=== PATIENT | female | born 2000 | race Hispanic/Latino ===

== ENCOUNTER 2023-12-20 20:04 | Emergency (ER) | payer OTHER ==
[~2023-12-20] VITALS: Ht 165.1 cm; Wt 113.9 kg
[2023-12-20] MEDS ORDERED: AMOX-426 PO (21:16)
[2023-12-20] MEDS ORDERED: FEXO1TAB5 PO (21:16)
[2023-12-20 21:29] VITALS: BP 134/76; PULSE 72; RESP 16; O2SAT 98
== END 2023-12-20 21:50 | disposition home or self-care (01) ==
LOC: EDH 20:04
DX: H66.93 Otitis media, unspecified, bilateral (principal); E11.9 Type 2 diabetes mellitus without complications; Z98.890 Other specified postprocedural states

== ENCOUNTER 2024-08-30 22:32 | Emergency (ER) | payer SELFPAY ==
[~2024-08-30] VITALS: Ht 165.1 cm; Wt 116.2 kg
[~2024-08-30 22:32] MED LIST: AMOX-426 PO; FEXO1TAB5 PO
--- NOTE | 2024-08-30 22:34 | NUR ---
COVID, FLU AND STREP SWABS COLLECTED AND SENT [facility] PROVIDED
--- NOTE | 2024-08-30 22:58 | ERN ---
ED Note History of Present Illness Stated Complaint: BODYACHES, FEELS WARM Chief Complaint: Multiple Complaints Time Seen by MD: 22:36 Dictation: Patient comes in because she has some epigastric abdominal pain has some body aches and feels warm. It says has some nausea denies any falls trips traumas dysuria hematuria discharge Allergies: Coded Allergies: No Known Drug Allergies (Unverified Allergy, Unknown, 12/20/23) Home Meds Active Scripts Fexofenadine/Pseudoephedrine (Sandra-D 12 Hour Tablet) 60 Mg-120 Mg Tab.er.12h, 1 EACH PO BID for 10 Days, #60 TAB Prov:KARLO SHIN MD 12/20/23 Amoxicillin/Potassium Clav (Augmentin 500-125 Tablet) 500 Mg-125 Mg Tablet, 1 EACH PO BID for 10 Days, #20 TAB Prov:KARLO SHIN MD 12/20/23 Past Medical History Past Medical History: Diabetes-Type II Surgical History: Social History: Negative LMP: Jul 07, 2024 Review of System Dictation Constitutional: Negative for fever,chills, and weight loss Eyes: Negative for injury, pain,redness, and discharge ENT: Negative for injury,pain or swelling Cardiovascular: Negative for chest pain, palpitations, and edema Respiratory: Negative for shortness of breath, cough, and wheezing, Abdomen/GI: Epigastric abdominal pain nausea Back: Negative for injury and pain : Negative for injury, bleeding and discharge MS/Extremity: Negative for injury and deformity Skin: Negative for rash, and discoloration Neuro: Negative for headache, weakness, numbness, tingling, and seizure Psych: Negative for suicide ideation, homicidal ideation, and hallucinations Initial Vital Sign VS Vital Signs Date Time Temp Pulse Resp B/P (MAP) Pulse Ox O2 Delivery O2 Flow Rate FiO2 08/30/24 22:33 97.9 75 14 148/86 98 Room Air Physical Exam Dictation General: awake, alert, NAD Head/Face: Normocephalic, atraumatic Eyes: PERRL, EOMI, vision at baseline ENT: oral cavity clear, TMs clear, no signs of infection Neck: Trachea midline, supple, no nuchal rigidity Cardiovascular: RRR, normal S1/S2, No MRGs, no JVD Respiratory: CTAB, no respiratory distress, No rales or wheezes Abdomen: Have some epigastric abdominal pain Skin: Warm, dry, normal turgor, no rash MS/Extremity: Pulses equal, no cyanosis, neurovascular intact, FROM Neuro: COAx4, GCS 15, strength 5/5, CN 2-12 intact, normal cerebellar exam, normal gait, Psych: Normal behavior, mood, and affect normal Results (Laboratory/Radiology) Laboratory/Radiology Laboratory Tests Test 08/30/24 22:35 08/30/24 23:25 Influenza Type A Antigen Negative For Type A Influenza Type B Antigen Negative For Type B SARS-CoV-2, RNA, NAAT NEGATIVE SARS CoV-2 Group A Streptococcus Rapid negative (NEGATIVE) White Blood Count 7.4 K/uL (4.8-10.8) Red Blood Count 4.61 MIL/uL (4.00-5.50) Hemoglobin 13.2 g/dL (12.0-16.0) Hematocrit 39.1 % (36-48) Mean Corpuscular Volume 84.8 fL (79-99) Mean Corpuscular Hemoglobin 28.6 pg (27.0-33.0) Mean Corpuscular Hemoglobin Concent 33.8 g/dL (32.0-36.0) Red Cell Distribution Width 13.2 % (11.0-15.5) Platelet Count 218 K/uL (130-400) Mean Platelet Volume 10.3 fL (7.5-10.5) Immature Granulocyte % (Auto) 0.3 % (0-1) Neutrophils (%) (Auto) 43.2 % (40.0-77.0) Lymphocytes (%) (Auto) 43.4 % (21.0-51.0) Monocytes (%) (Auto) 11.0 % (3.0-13.0) Eosinophils (%) (Auto) 1.6 % (0.0-8.0) Basophils (%) (Auto) 0.5 % (0.0-5.0) Neutrophils # (Auto) 3.2 K/uL (1.8-7.7) Lymphocytes # (Auto) 3.2 K/uL (1.0-4.8) Monocytes # (Auto) 0.8 K/uL (0.1-1.0) Eosinophils # (Auto) 0.12 K/uL (0.00-0.70) Basophils # (Auto) 0.04 K/uL (0.00-0.20) Absolute Immature Granulocyte (auto 0.02 K/uL (0-1) Nucleated Red Blood Cells 0.0 % (0.0-0.19) Sodium Level 134 mmol/L (136-145) L Potassium Level 3.9 mmol/L (3.5-5.1) Chloride Level 99 mmol/L (101-111) L Carbon Dioxide Level 30 mmol/L (21-32) Blood Urea Nitrogen 14 mg/dL (7-18) Creatinine 0.8 mg/dL (0.5-1.0) Glomerular Filtration Rate Calc 105 mL/min (>90) Random Glucose 119 mg/dL (70-105) H Total Calcium 8.7 mg/dL (8.5-10.1) Total Bilirubin 0.4 mg/dL (0.2-1.0) Direct Bilirubin 0.1 mg/dL (0.0-0.3) Aspartate Amino Transf (AST/SGOT) 66 U/L (10-37) H Alanine Aminotransferase (ALT/SGPT) 145 U/L (12-78) H Alkaline Phosphatase 105 U/L (50-136) Total Protein 7.7 g/dL (6.0-8.3) Albumin 3.2 g/dL (3.5-5.0) L Lipase 44 U/L (16-77) ED Course ED Course Orders Procedure Category Date Status Time Covid Rna Naat LAB 08/30/24 Complete 22:34 Influenza Type A & B, LAB 08/30/24 Complete Rapid 22:34 Rapid (Group A Strep) LAB 08/30/24 Complete 22:34 Urinalysis Profile LAB 08/30/24 Logged 22:34 ,Urine Test LAB 08/30/24 Logged 22:34 Cbc With Differential LAB 08/30/24 Complete 22:34 Basic Metabolic Panel LAB 08/30/24 Complete 22:34 Lipase LAB 08/30/24 Complete 22:34 Hepatic Function Panel LAB 08/30/24 Complete 22:34 Vital Signs Date Time Temp Pulse Resp B/P (MAP) Pulse Ox O2 Delivery O2 Flow Rate FiO2 08/30/24 22:33 97.9 75 14 148/86 98 Room Air Medical Decision Making MDM Could be gastritis could be pancreatitis could be viral syndrome labs test imaging DX & DISP Disposition: Discharge Departure Impression: Primary Impression: Epigastric abdominal pain Condition: Stable Scripts Ondansetron HCl (Zofran) 4 Mg/2 Ml Inj 4 MG IM BID for 5 Days, #10 ML Prov: YAJAIRA PAK MD 08/31/24 Famotidine (Famotidine) 20 Mg Tablet 20 MG PO BID for 10 Days, #20 TAB Prov: YAJAIRA PAK MD 08/31/24 Referrals: SELF,REFERRAL (PCP) YAJAIRA PAK MD Aug 30, 2024 22:58
[2024-08-30 23:00] LABS: RAPID GROUP A STREP negative (NEGATIVE)
[2024-08-30 23:06] LABS: SARS-CoV-2, RNA, NAAT NEGATIVE SARS CoV-2 (NEGATIVE)
[2024-08-30 23:10] LABS: INFLUENZA TYPE A Negative For Type A (NEGATIVE); INFLUENZA TYPE B Negative For Type B (NEGATIVE)
[2024-08-30 23:33] LABS: BASOPHILS # (AUTO) 0.04 K/uL (0.00-0.20); BASOPHILS % (AUTO) 0.5 % (0.0-5.0); EOSINOPHILS # (AUTO) 0.12 K/uL (0.00-0.70); EOSINOPHILS % (AUTO) 1.6 % (0.0-8.0); HEMATOCRIT 39.1 % (36-48); IMMATURE GRANULOCYTE ABSOLUTE 0.02 K/uL (0-1); LYMPHOCYTES # (AUTO) 3.2 K/uL (1.0-4.8); LYMPHOCYTES % (AUTO) 43.4 % (21.0-51.0); MEAN CORPUSCULAR HEMOGLOBIN 28.6 pg (27.0-33.0); MEAN CORPUSCULAR HGB CONC 33.8 g/dL (32.0-36.0); MEAN CORPUSCULAR VOLUME 84.8 fL (79-99); MONOCYTES # (AUTO) 0.8 K/uL (0.1-1.0); NEUTROPHILS # (AUTO) 3.2 K/uL (1.8-7.7); NEUTROPHILS % (AUTO) 43.2 % (40.0-77.0); PLATELET COUNT (AUTO) 218 K/uL (130-400); RED BLOOD CELL COUNT(AUTO) 4.61 MIL/uL (4.00-5.50); RED CELL DISTRIBUTION WIDTH 13.2 % (11.0-15.5); WHITE BLOOD COUNT (AUTO) 7.4 K/uL (4.8-10.8)
[2024-08-30 23:46] LABS: CREATININE 0.8 mg/dL (0.5-1.0); POTASSIUM 3.9 mmol/L (3.5-5.1)
--- NOTE | 2024-08-30 23:49 | NUR ---
CALLED NO ANSWER
[2024-08-30 23:52] LABS: ALBUMIN 3.2 g/dL (3.5-5.0); BILIRUBIN,DIRECT 0.1 mg/dL (0.0-0.3); BILIRUBIN,TOTAL 0.4 mg/dL (0.2-1.0); TOTAL PROTEIN, SERUM 7.7 g/dL (6.0-8.3)
--- NOTE | 2024-08-30 23:53 | NUR ---
PT CALLED, NO ANSWER
[2024-08-31] MEDS ORDERED: FAMO20TA8 PO (00:43)
[2024-08-31] MEDS ORDERED: ONDA22I IM (00:43)
[2024-08-31 00:49] VITALS: BP 140/82; PULSE 82; RESP 16; TEMP 98.1; O2SAT 98
== END 2024-08-31 00:53 | disposition home or self-care (01) ==
LOC: EDH 22:32
DX: R10.13 Epigastric pain (principal); E11.9 Type 2 diabetes mellitus without complications; Z20.822 Contact with and (suspected) exposure to COVID-19
CPT/HCPCS: 36415; 80048; 80076; 83690; 85025; 87635; 87804; 87880; 99283